=== PATIENT | female | born 1955 | race Two or more races ===

== ENCOUNTER 2024-07-07 13:54 | Emergency (ER) | payer MEDICARE, OTHER ==
[~2024-07-07] VITALS: Ht 152.4 cm; Wt 55.8 kg
[2024-07-07] MEDS ORDERED: ACETAMINOPHEN 500 MG TABLET ONE (14:32)
[2024-07-07] MEDS: ACETAMINOPHEN 500 MG TABLET PO ONE (14:32)
[2024-07-07] MEDS ORDERED: LIDO30AD10 TP (16:28)
[2024-07-07] MEDS ORDERED: CYCL5TAB PO (16:28)
[2024-07-07] MEDS ORDERED: ACET-2605 PO (16:28)
[2024-07-07 16:43] VITALS: BP 170/78; TEMP 98.6; O2SAT 100
== END 2024-07-07 16:44 | disposition home or self-care (01) ==
LOC: ER 13:54
DX: S16.1XXA Strain of muscle, fascia and tendon at neck level, initial encounter (principal); S09.8XXA Other specified injuries of head, initial encounter; M25.532 Pain in left wrist; M25.552 Pain in left hip; M25.512 Pain in left shoulder; M25.511 Pain in right shoulder; R51.9 Headache, unspecified; G89.29 Other chronic pain; Z93.3 Colostomy status; Z88.0 Allergy status to penicillin; Z88.5 Allergy status to narcotic agent; Z88.8 Allergy status to other drugs, medicaments and biological substances; W01.0XXA Fall on same level from slipping, tripping and stumbling without subsequent striking against object, initial encounter; Y93.89 Activity, other specified; Y92.89 Other specified places as the place of occurrence of the external cause; Y99.8 Other external cause status
CPT/HCPCS: 70450; 71045; 72125; 73030; 73110; 73502; A4606; A4663; A9150